=== PATIENT | female | born 1990 | race Caucasian/White ===

== ENCOUNTER 2017-11-04 21:23 | Emergency (ER) | payer SELFPAY ==
--- NOTE | 2017-11-04 22:37 | C.PDOC ---
History Of Present Illness 27 y/o female with no significant PMHx presents to the ED with 1 week of left flank and back pain. Pain has been progressively worsening. Patient also complains of urinary frequency, and today noticed hematuria. Denies associated nausea, vomiting, fever, or prior hx of renal calculi. Time Seen by Provider: 11/04/17 22:15 Chief Complaint (Nursing): Abdominal Pain History Per: Patient History/Exam Limitations: no limitations Onset/Duration Of Symptoms: Days Current Symptoms Are (Timing): Still Present Past Medical History Reviewed: Historical Data, Nursing Documentation, Vital Signs Vital Signs: Last Vital Signs Temp 98.1 F 11/04/17 23:11 Pulse 88 11/04/17 23:11 Resp 20 11/04/17 23:11 BP 131/86 11/04/17 23:11 Pulse Ox 96 11/04/17 23:11 - Medical History PMH: No Chronic Diseases Denies: Chronic Kidney Disease Surgical History: No Surg Hx - [facility] Procedures APPLICATION OF SPLINT (12/29/13) Family History: States: No Known Family Hx - Social History Hx Tobacco Use: Yes Hx Alcohol Use: Yes Hx Substance Use: No - Immunization History Hx Tetanus Toxoid Vaccination: Yes Hx Influenza Vaccination: No Hx Pneumococcal Vaccination: No Review Of Systems Except As Marked, All Systems Reviewed And Found Negative. Constitutional: Negative for: Fever, Chills Gastrointestinal: Negative for: Nausea, Vomiting Genitourinary: Positive for: Frequency, Hematuria Musculoskeletal: Positive for: Back Pain, Other (left flank pain) Physical Exam - Physical Exam Appears: Non-toxic, No Acute Distress, Other (Morbidly obese) Skin: Normal Color, Warm, Dry Head: Atraumatic, Normacephalic Eye(s): bilateral: Normal Inspection, PERRL, EOMI Nose: Normal Oral Mucosa: Moist Neck: Normal ROM, Supple Chest: Symmetrical Cardiovascular: Rhythm Regular, No Murmur, Other (S1,S2 are wnl) Respiratory: Normal Breath Sounds, No Rales, No Rhonchi, No Wheezing Gastrointestinal/Abdominal: Bowel Sounds (active), Soft, Tenderness (to left lower quadrant), No Guarding, No Rebound Back: CVA Tenderness (Left CVA and flank), No Vertebral Tenderness Extremity: Bilateral: Atraumatic, Normal Color And Temperature (with no clubbing , cyanosis, or edema), Normal ROM Neurological/Psych: Oriented x3, Normal Speech ED Course And Treatment O2 Sat by Pulse Oximetry: 97 (RA) Pulse Ox Interpretation: Normal Medical Decision Making Medical Decision Making: Impression: UTI, possible pyelonephritis Plan: --UA --Urine culture Urine shows ____ Will start empirically on antibiotics and d/c home. Disposition - Disposition Referrals: [facility] at [facility] [Outside] Disposition: HOME/ ROUTINE Disposition Time: 01:28 Condition: GOOD Prescriptions: Nitrofurantoin Macrocrystals [Macrobid] 100 mg PO BID #20 cap Phenazopyridine [Pyridium] 100 mg PO TID #6 tab Instructions: Urinary Tract Infections in Adults Forms: [employer] (Icelandic) Print Language: CITIZEN OF [place] - Clinical Impression Clinical Impression: Pyelonephritis - Scribe Statement The provider has reviewed the documentation as recorded by the Scribe (Beba Khoury) Provider Attestation: All medical record entries made by the Scribe were at my direction and personally dictated by me. I have reviewed the chart and agree that the record accurately reflects my personal performance of the history, physical exam, medical decision making, and the department course for this patient. I have also personally directed, reviewed, and agree with the discharge instructions and disposition.
[2017-11-04 22:45] LABS: SQUAMOUS EPITHIAL < 1 /hpf (0-5); URINE BACTERIA RARE (<OCC); URINE BILIRUBIN NEGATIVE (NEGATIVE); URINE BLOOD 3+ (NEGATIVE); URINE CLARITY Hazy (Clear); URINE COLOR Yellow (YELLOW); URINE GLUCOSE (UA) NORMAL (Normal); URINE LEUKOCYTE ESTERASE 1+ Leu/uL (Negative); URINE PROTEIN 2+ mg/dL (NEGATIVE); URINE UROBILINOGEN NORMAL mg/dL (0.2-1.0)
[2017-11-04 23:12] VITALS: BP 131/86; PULSE 88; RESP 20; TEMP 98.1
[2017-11-05 01:29] VITALS: O2SAT 97
== END 2017-11-04 23:14 | disposition home or self-care (01) ==
LOC: C.ER 21:23
DX: N10 Acute pyelonephritis (principal)

== ENCOUNTER 2018-07-07 17:56 | Emergency (ER) | payer SELFPAY ==
[2018-07-07] MEDS ORDERED: Sodium Chloride 0.9% 1,000 ML IV STA (18:29)
--- NOTE | 2018-07-07 18:43 | C.PDOC ---
History Of Present Illness 27 y/o female with no known PMHx, presents to the ED with sudden onset heavy vaginal bleeding that began 3 hours prior to arrival. Just before onset of bleeding, she felt very lightheaded and near-syncopal. Patient states the bleeding seems much heavier than any menstrual periods in the past. She admits to having irregular period, LMP was 2 months ago, however the bleeding has never been this heavy. Patient denies any chest pain, SOB, other bleeding, dysuria, frequency, or other associated symptoms. PMD: None Time Seen by Provider: 07/07/18 18:04 Chief Complaint (Nursing): Female Genitourinary History Per: Patient History/Exam Limitations: no limitations Onset/Duration Of Symptoms: Hrs (x3) Current Symptoms Are (Timing): Still Present Past Medical History Reviewed: Historical Data, Nursing Documentation, Vital Signs Vital Signs: Last Vital Signs Temp 98.9 F 07/07/18 18:00 Pulse 88 07/07/18 18:00 Resp 18 07/07/18 18:00 BP 145/79 07/07/18 18:00 Pulse Ox 97 07/07/18 18:00 - Medical History PMH: No Chronic Diseases Denies: Chronic Kidney Disease Surgical History: No Surg Hx - [facility] Procedures APPLICATION OF SPLINT (12/29/13) Family History: States: Other Other Family History: Brain CA in mother - Social History Hx Tobacco Use: Yes (former) Hx Alcohol Use: Yes (denies) Hx Substance Use: No - Immunization History Hx Tetanus Toxoid Vaccination: Yes Hx Influenza Vaccination: No Hx Pneumococcal Vaccination: No Review Of Systems Except As Marked, All Systems Reviewed And Found Negative. Constitutional: Negative for: Fever, Chills, Sweats Eyes: Negative for: Vision Change Cardiovascular: Positive for: Light Headedness (prior to bleeding). Negative for: Chest Pain Respiratory: Negative for: Shortness of Breath Gastrointestinal: Negative for: Nausea, Vomiting, Diarrhea Genitourinary: Positive for: Vaginal Bleeding. Negative for: Dysuria, Frequency Skin: Negative for: Other (other bleeding) Physical Exam - Physical Exam Appears: Well, Non-toxic, No Acute Distress, Other (Morbidly obese) Skin: Normal Color, Warm, Dry Head: Atraumatic, Normacephalic Eye(s): bilateral: Normal Inspection, PERRL, EOMI Cardiovascular: Rhythm Regular, No Murmur Respiratory: Normal Breath Sounds, No Accessory Muscle Use Gastrointestinal/Abdominal: Soft, Tenderness (to right suprapubic/pelvic area), No Mass, No Guarding, No Rebound Back: No CVA Tenderness, No Vertebral Tenderness Extremity: Normal ROM, No Calf Tenderness, No Swelling Neurological/Psych: Oriented x3, Normal Speech ED Course And Treatment - Laboratory Results Result Diagrams: 07/07/18 18:45 07/07/18 18:45 O2 Sat by Pulse Oximetry: 97 (RA) Pulse Ox Interpretation: Normal - CT Scan/US Transvaginal US Other Rad Studies (CT/US): Read By Radiologist, Radiology Report Reviewed CT/US Interpretation: Date of service: 07/07/2018. History. Pelvic pain. Comparison. None available. Technique. Pelvic ultrasound. Findings. Uterus. Measures 8.4 x 3.9 x 5.0 cm. Normal in size and appearance. No fibroid or other mass lesion seen. Endometrium. Thick. Measures 2.2 cm in diameter. Cervix. No cervical abnormality identified. Right ovary. Measures 3.0 x 1.7 x 1.9 cm. No solid mass. Normal flow. Left ovary. Measures 3.1 x 2.3 x 3.1 cm. No solid mass. Normal flow. Paraovarian cyst measures 3.0 x 3.2 x 2.9 cm. Elongated cystic structure in the left adnexa measuring 1.6 x 1.4 x 5.8 cm, possible hydrosalpinx versus irregular paraovarian cyst. Free fluid: No significant free fluid noted. Other Findings. None. Impression. Thick endometrium. Left ovary paraovarian cyst. Inferior to left ovary, possible hydrosalpinx versus irregular paraovarian cyst. Follow up study in 1-2 cycles is recommended. Medical Decision Making Medical Decision Making: Impression: Metrorrhagia Differential diagnosis includes but is not limited to: anemia, fibroid, dysfunctional uterine bleeding, threatened , coagulopathy Plan: --CMP --CBC --PTT/PT --Urinalysis --Urine HCG --IV fluids --Reassess Discussed US findings with patient and need for follow up with [employer] within a month. Patient stable for discharge. Disposition - Disposition Referrals: [facility] at [facility] [Outside] Disposition: HOME/ ROUTINE Disposition Time: 23:00 Condition: STABLE Additional Instructions: REST AND DRINK PLENTY OF HYDRATING FLUIDS YOU CAN TAKE MOTRIN OR ADVIL FOR PAIN FOLLOWUP AT CLINIC WITHIN 2 WEEKS FOR FURTHER EVALUATION RETURN TO ER FOR BLEEDING MORE THAN ONE PAD AN HOURS, FAINTING OR NEAR FAINTING, SEVERE PAIN OR ANY OTHER WORRISOME SYMPTOMS Instructions: Ovarian Cyst (DC), Heavy Periods (DC) Forms: Work/School/Gym Excuse - Clinical Impression Clinical Impression: Metrorrhagia, Ovarian cyst - Scribe Statement The provider has reviewed the documentation as recorded by the Ellie Khoury Provider Attestation: All medical record entries made by the Ellie were at my direction and personally dictated by me. I have reviewed the chart and agree that the record accurately reflects my personal performance of the history, physical exam, medical decision making, and the department course for this patient. I have also personally directed, reviewed, and agree with the discharge instructions and disposition.
[2018-07-07] MEDS ORDERED: Sodium Chloride 0.9% 1,000 ML ONE (18:49)
[2018-07-07 18:51] LABS: BASO % 0.3 % (0.0-2.0); EOS # 0.2 K/uL (0.0-0.7); EOS % 1.9 % (0.0-4.0); HEMOGLOBIN 12.4 g/dL (11.0-16.0); LYMPH # 1.9 K/uL (1.0-4.3); LYMPH % 22.3 % (20.0-40.0); MEAN CELL VOLUME 78.2 fL (81.0-99.0); MEAN CORPUSCULAR HEMOGLOBIN 25.1 pg (27.0-31.0); MEAN CORPUSCULAR HGB CONC 32.1 g/dL (33.0-37.0); MEAN PLATELET VOLUME 8.3 fL (7.2-11.7); MONO # 0.4 K/uL (0.0-0.8); MONO % 5.3 % (0.0-10.0); NEUT # 5.8 K/uL (1.8-7.0); NEUT % 70.2 % (50.0-75.0); NRBC % 0.1 % (0.0-2.0); RBC 4.95 Mil/uL (3.80-5.20); RED CELL DISTRIBUTION WIDTH 15.5 % (11.5-14.5); WHITE BLOOD COUNT 8.3 K/uL (4.8-10.8)
[2018-07-07 19:03] LABS: HCG,QUALITATIVE URINE NEGATIVE (NEGATIVE); SQUAMOUS EPITHIAL 1 /hpf (0-5); URINE BACTERIA OCC (<OCC); URINE BILIRUBIN NEGATIVE (NEGATIVE); URINE BLOOD 2+ (NEGATIVE); URINE CLARITY Clear (Clear); URINE COLOR Yellow (YELLOW); URINE GLUCOSE (UA) NORMAL (Normal); URINE LEUKOCYTE ESTERASE NEG Leu/uL (Negative); URINE PROTEIN NEGATIVE (NEGATIVE); URINE UROBILINOGEN NORMAL mg/dL (0.2-1.0)
[2018-07-07 19:04] LABS: ALBUMIN 3.6 g/dL (3.5-5.0); ALT/SGPT 35 U/L (9-52); AST/SGOT 29 U/L (14-36); BLOOD UREA NITROGEN 10 mg/dL (7-17); CALCIUM 8.7 mg/dl (8.6-10.4); GFR NON-AFRICAN AMERICAN > 60
[2018-07-07 19:16] LABS: INR 1.1; PROTHROMBIN TIME 12.3 SECONDS (9.7-12.2)
[2018-07-07 23:29] VITALS: BP 120/77; PULSE 82; RESP 20; TEMP 97.2
[2018-07-07 23:53] VITALS: O2SAT 97
--- NOTE | 2018-07-08 09:47 | US ---
Date of service: 07/07/2018 HISTORY: pelvic pain COMPARISON: /resolution. TECHNIQUE: Transabdominal and transvaginal pelvic ultrasound was performed. FINDINGS: UTERUS: Measures 8.4 x 3.9 x 5.0 cm. Anteverted, normal in size and appearance. No fibroid or other mass lesion seen. ENDOMETRIUM: Measures 22 mm in diameter. Unremarkable. CERVIX: No cervical abnormality identified. RIGHT OVARY: Measures 3.0 x 1.7 x 1.9 cm. No solid mass. Normal flow. LEFT OVARY: Measures 3.1 x 2.3 x 3.1 cm. No solid mass. Normal flow. There is a dilated tubular structure in the adnexa which measures approximately 3.0 x 3.2 x 2.9 cm. Additionally, there is a 1.6 x 1.4 x 5.8 cm simple cyst. FREE FLUID: No significant free fluid noted. OTHER FINDINGS: None. IMPRESSION: 1. Dilated tubular structure in the left adnexa suspicious for hydrosalpinx. 2. 5.8 cm simple cyst in the left ovary. Follow-up ultrasound in 3-6 month interval is recommended to assess stability. A preliminary report was provided by [employer].
== END 2018-07-07 23:40 | disposition home or self-care (01) ==
LOC: C.ER 17:56
DX: N92.1 Excessive and frequent menstruation with irregular cycle (principal); N83.202 Unspecified ovarian cyst, left side
CPT/HCPCS: 76830; 76856; 80053; 81001; 84703; 85025; 85610; 85730; 86850; 86900; 96360; 99284; J7030